=== PATIENT | female | born 1975 | race Caucasian/White ===

== ENCOUNTER → 2018-05-13 09:43 | Outpatient (CLI) | payer OTHER, SELFPAY ==
[2018-05-18 08:17] LABS: HPV HC, High Risk Negative (Negative)
== END ==
PROVIDERS: Visit Provider Obstetrics & Gynecology
DX: Z12.4 Encounter for screening for malignant neoplasm of cervix (principal)
CPT/HCPCS: 87624; 88175; G0145

== ENCOUNTER → 2019-02-22 11:00 | Outpatient (CLI) | payer OTHER, SELFPAY ==
--- NOTE | 2019-02-22 11:30 | EMB_PTH ---
PATIENT: JANETH MCCRAY LOC: [facility] U#:[id number] AGE/SX: 50/F ROOM: RE02/22/[address]: Dr. Bridger Hopson MD : 1975 BED: DIS: SPEC #: [id number] RECD: 02/23/19 10:46 STATUS: ADELINE CRICKET #: [id number] GURMEET: 02/22/19 11:[address]: Bridger Hopson DEPT: SURGICAL PATHOLOGY RECD BY: Mathew Wilhelm Tissues: Endometrium, NOS Procedures: Surgery Specimen Level IV HEADER OPERATION: Endometrial biopsy PRE-OP DIAGNOSIS: N92.6, N93.9 TISSUE SUBMITTED: Endometrial biopsy MICROSCOPIC DIAGNOSIS Endometrial biopsy: Proliferative endometrium. DIANELYS:vikki 02/24/19 MICROSCOPIC DESCRIPTION Slides are reviewed. GROSS DESCRIPTION Received in fixative is one container labeled with the patient's name and designated EM biopsy. The specimen consists of multiple irregular fragments of light clayton soft tissue that in aggregate measure 3 x 2.5 x 0.2 cm. The entire specimen is submitted in one cassette. / SJ:rg 02/23/19 TC:4 CPT: 93694
== END ==
PROVIDERS: Referring Provider Obstetrics & Gynecology; Visit Provider Obstetrics & Gynecology
DX: N93.9 Abnormal uterine and vaginal bleeding, unspecified (principal); N92.6 Irregular menstruation, unspecified
CPT/HCPCS: 88305

== ENCOUNTER 2019-08-08 05:50 | Day surgery (SDC) | payer OTHER, MEDICAID, SELFPAY ==
[2019-08-03 12:55] LABS: Hemoglobin 13.3 g/dL (12.0-15.0); Mean Corp Hgb Conc 32.4 g/dL (32-36); Mean Corpuscular Hgb 28.5 pg (27.0-32.0); Mean Corpuscular Volume 87.8 fL (81-99); Mean Platelet Vol. 9.7 fl (6.2-12.0); Platelet Count 224 K/mm3 (150-450); RBC Distribution Width CV 13.1 % (11.6-14.6); RBC Distribution Width SD 41.7 fl (35.1-43.9); Red Blood Count 4.67 M/mm3 (4.2-5.4); White Blood Count 7.5 K/mm3 (4.4-11.0)
[2019-08-03 13:04] LABS: Prothrombin Time (Protime)PT. 12.2 SECONDS (11.7-14.9)
[2019-08-03 13:05] LABS: Partial Thromboplast Time 27.8 Seconds (24.1-36.2)
[2019-08-03 13:22] LABS: hCG Titer Quant., Serum < 1 mIU/mL (1-3)
[2019-08-03 13:30] LABS: Creatinine, Serum 0.59 mg/dL (0.55-1.02); EST Glomerular Filtration Rate 118 mL/min (>60); Est Glom Filt Rate - Afr Amer 143 mL/min (>60); Thyroid Stim Hormone (TSH) 0.98 uIU/mL (0.358-3.74)
--- NOTE | 2019-08-07 21:38 | HP.PCM_ITS ---
History and Physical Date of Admission: 08/08/19 Surgical History and Physical Pushpa Montez, a 44 year old female 3 0 0 0 3, presents for RAVH/BS on August 08, 2019 at 7:30. -- Heavy Menses S/P EM Ablation -- She has bleed every day for the past 27 days. Mildly enlarged uterus with questionable fibroid changes. Hx Ablation in 2012. At first her periods were 1-2 days and browinsh. This past year they have been lasting 7-8 days, heavier, with clots one day and bright red. Started gradually and has been present worsened in . Severity is moderate and very concerned; Associated signs and symptoms are periods always irregular now getting much heavier sometimes lasting 30 days; cannot take much longer. Previous [employer] in about 2012. MEDICATIONS HISTORY: ALLERGIES: NKDA, Pineapple, Swelling-throat, Kiwi and Swelling-throat Infections - Chicken pox and HPV Illnesses - none Accidents - None Hospitalizations - see surgery and Childbirth Review of Systems: GENERAL - Denies fever, or chills SKIN - Denies skin changes EYES - Denies visual changes EARS - Denies difficulty hearing NOSE - Denies nasal congestion or bleeding MOUTH - Denies sore throat or difficulty swallowing NECK - Denies pain or swelling RESPIRATORY - Denies shortness of breath or wheezing CARDIOVASCULAR - Denies palpitations or chest pain GASTROINTESTINAL - Denies nausea, vomiting, diarrhea, constipation GENITOURINARY - Denies dysuria, frequency of urination, incontinence of urine MUSCULOSKELETAL - Denies joint or muscle pain NEUROLOGICAL - Denies localized numbness or weakness PSYCHIATRIC - Denies depression or anxiety ENDOCRINE - Denies heat or cold intolerance, weight loss or gain HEMATO-IMMUNOLOGIC - Denies excesive bleeding with cuts SOCIAL HISTORY: Alcohol Use - None Smoking - Never Diet - no special diet Lifestyle - moderate stress lifestyle and Exercise - minimal Seat Belt Use - always Employer - [employer] Job Description - project coach/teacher Illicit Drug Use - None Sexual Activity - and sexually inactive Residence - living w/children. from 10-21-14 Children Name(s) - abby yates alyssa Control - none FAMILY HISTORY: Mother: Thyroid Problem, Hypertension and Stroke. Father: Thyroid Problem and DM II. Paternal Grandfather: Heart Disease. MENSTRUAL HISTORY: LMP Known?- YesAmount/Duration - 7-8 days, Regularity - Irregular, Frequency - 28 days, LMP - 06/23/19, Age Onset Menarche - 14 PAST PREGNANCIES: Total Pregnancies - 3; Full Term Pregnancies - 3; Premature - 0; Abortions, Induced - 0; Abortions, Spontaneous - 0; Ectopics - 0; Multiple Births - 0; Living Children - 3 SURGICAL HISTORY: 1. 1979 lump removed from throat 2. 09/08/2012 Hysteroscopy, D and C, endometrial polypectomy, [facility] ; Dr Apolinar Tang - PHYSICAL EXAM BP- 142/84 Sitting, Right arm, regular cuff Weight- 218.61561 lbs Height- 66.5 inch BMI:34.73 CONSTITUTIONAL - NAD, well nourished, and well developed SKIN - No rash, lesions, or ulcers HEENT - Normocephalic, PERRLA, EOMI NECK - No nodes, no nuchal rigidity and thyroid normal size and texture LYMPH NODES - Palpation of lymph nodes in neck and groins within normal limits LUNGS - CTA x2 without wheezes, crackles or rales CARDIAC - Regular rate and rhythm without rubs, murmurs, or gallops BREAST - No dominant masses, no tenderness, no axillary adenopathy, no nipple discharge, no skin changes ABDOMEN - Without hepatosplenomegaly, distention, masses, rebound, or guarding; normal bowel sounds; no hernias EXTREMITIES - No edema or calf tenderness NEUROLOGICAL - Cranial nerves II-XII grossly intact PSYCHIATRIC - A and O to time, place, person, mood and affect External Genital Vagina - non-tender without lesions Urethra/Urethral Meatus - non-tender Bladder - non-tender Vagina - vaginal timmons are pink and moist without loss of rugae and no evidence of atropy Cervix - without cervical motion tenderness and has normal size and features without evident lesions and cervix high in vagina which would make LAVH difficult but RAVH feasible; large cervix Uterus - multiparous size 6 cm & wt 75-125 g Adnexa - clear without massess or tenderness ASSESSMENT/PLAN: 1. Metrorrhagia Recurrent s/p EM Ablation. EMBx results ok. Discussed medical and surgical options for treatment including expectant management, intermittent progesterone or OCP or proceeding with RAVH/BS. Pt desires the surgery. Discussed RBAs and all questions answered.
[2019-08-08] VITALS (13 sets, daily range): BP systolic 108–134; BP diastolic 64–87; PULSE 16–90; RESP 15–18; TEMP 36.3–37.3; O2SAT 92–100; BMI 35.2
[2019-08-08 06:32] LABS: Internal QC Validated? YES +Cl - CLEAR BKGD; Pregnancy, Urine Negative Negative
[2019-08-08] MEDS: Lactated Ringers 1,000 ML 100 ML IV ×3 (06:34→12:06)
--- NOTE | 2019-08-08 07:30 | HYST_PTH ---
PATIENT: JANETH MCCRAY LOC: [facility] U#:[id number] AGE/SX: 44/F ROOM: RE08/08/[address]: Dr. Bridger Hopson MD : 1975 BED: DIS: 08/09/2019 SPEC #: [id number] RECD: 08/08/19 14:00 STATUS: ADELINE CRICKET #: [id number] GURMEET: 08/08/19 07:[address]: Bridger Hopson DEPT: SURGICAL PATHOLOGY RECD BY: Mathew Wilhelm ENTERED: 08/09/19 09:19 SP TYPE: HYSTERECT OTHR DR: SAL Hubbard Tissues: Uterus, NOS Procedures: Surgery Specimen Level V HEADER OPERATION: Lap robotic hysterectomy, bilateral salpingectomy PRE-OP DIAGNOSIS: Metrorrhagia TISSUE SUBMITTED: Uterus, cervix, bilateral fallopian tubes MICROSCOPIC DIAGNOSIS Uterus, cervical and bilateral fallopian tubes, hysterectomy and bilateral salpingectomy: Cervix - moderate chronic inflammation. Endometrium - extensive hyalinization of fibrosis, consistent with endometrial ablation effects. Myometrium - intramural leiomyomas (largest measuring 1 cm in diameter). Bilateral fallopian tubes - no pathologic diagnosis. Right paratubal cyst. SJ:rg 08/10/19 COMMENT Please make reference to previous specimen ([id number]) endometrial biopsy with diagnosis of proliferative endometrium. MICROSCOPIC DESCRIPTION Slides are reviewed. GROSS DESCRIPTION Received in fixative is one container labeled with the patient's name and designated uterus, cervix, bilateral fallopian tubes. The specimen consists of a hysterectomy specimen consisting of uterus with cervix and attached bilateral fallopian tubes. The uterus with cervix weighs 110 gm and measures 10 x 5.5 x 4.5 cm. The serosal surface is clayton, glistening. The ectocervical mucosa is unremarkable. The external os is covered with clayton, hemorrhagic mucoid material. The endocervical canal measures 3 cm in length and the endocervical mucosa is clayton, glistening and unremarkable. The triangular endometrial cavity measures 5 cm in length and up to 1.5 cm in width. The endometrium is clayton, glistening without mass lesion and measures up to 0.1 cm in thickness. Sectioning of the uterine wall reveal multiple nodular masses, largest mass measuring 1 cm in diameter. Sections of these masses reveal clayton whorled cut surfaces without areas of hemorrhage, necrosis or cystic degeneration. The involved uterine wall measures up to 2.5 cm in thickness. The right fallopian tube measures 6 cm in length and 0.5 cm in diameter. The fimbrial end is identified. A paratubal cyst is noted measuring 0.5 cm in diameter. Sections reveal unremarkable cut surfaces. The left fallopian tube is similar appearance to right and measures 7 cm in length and 0.5 cm in diameter. The fimbrial end is identified. Sections reveal unremarkable cut surfaces. Regulatory Product Manager sections are submitted in nine cassettes as follows: 1??anterior cervix, 2 - posterior cervix, 3 & 4 - anterior uterine wall, 5 & 6 - posterior uterine wall, 7??nodular masses, 8 - right fallopian tube and paratubal cyst, 9 - left fallopian tube. / DIANELYS:vikki 08/09/19 TC:1 CPT: 18846
[2019-08-08] MEDS: Ropivacaine 0.5% 30 ML Vial (08:01)
--- NOTE | 2019-08-08 10:00 | PCM.OPRPT ---
Report of Operation Date of Procedure: 08/08/19 Pre-Operative Diagnosis: Menorrhagia Status Post Endometrial Ablation Post-Operative Diagnosis: Menorrhagia Status Post Endometrial Ablation Surgery/Procedure Performed:: Robotic Assisted Vaginal Hysterectomy and Bilateral Salpingectomy Description of Surgical Findings:: 10 cm uterus with normal-appearing fallopian tubes and ovaries. operations director: Catalino Hayse Type of Anesthesia:: General - Endotracheal Anesthesiologist: Vinh Mohan Specimen's removed: Uterus and bilateral fallopian tubes Drains: Borrego to straight drain Estimated Blood Loss (mL): Minimal Fluids Replaced: Crystalloid Description of Procedure: Surgeon: Bridger Hopson MD, FACOG Indication: This is a 44 year old patient who has been having problems with heavy periods after having an ablation done. Conservative measures have not been helpful. The patient has been counseled regarding the risks, benefits and alternatives of this procedure including the possibility of bleeding, infection, and injury to surrounding structures such as bowel bladder and all questions were answered. She understands that if BSO is needed that she will need to be on HRT for an indefinite period of time. Procedure: Pt taken to the operating room where, after induction of general anesthesia, the patient was prepped and draped in the usual sterile fashion and placed on a non-slip Huggy-u-vac device. Trendelenburg test was satisfactory. Bladder was drained of urine with a latex free Borrego catheter which was left in place. Anterior cervix grasped and cervix was dilated to about 3-4 mm. Uterus sounded to 9 cms. 0-Vicryl suture was placed at the 3:00 and 9:00 position of the cervix. A medium Advincula Airplane Electrical Repairer Uterine Manipulator was then placed in the uterus and attention was turned to the laparoscopic portion of the procedure. Ropivocaine 0.5% was injected approximately 2-3 cm superior to the umbilicus and an 8 mm robotic camera port was introduced directly with intraperitoneal placement confirmed with CO2 insufflation. 8 mm robotic side ports were introduced under direct visualization approximately 11 cm lateral and 2 cm inferior to the umbilical port. A 5 mm left upper quadrant port was introduced and airseal insufflation with CO2 was started. The above findings were noted. Robot was docked without difficulty and attention turned to the robotic portion of the procedure. Approximately 27 cc of Ropivicaine was used. Bilateral infundibulopelvic ligaments/mesosalpinx were ligated with 35 simpson bipolar coagulation to the level of the round ligament. The posterior aspect of the cervix was identified and then opened for about 1 cm using 25 watt monopolar cautery identifying the uterine manipulating device which had been placed vaginally. Bladder flap was opened and divided to the level of the round ligaments using monopolar cautery. Progressive bites were then ligated on each side of the cervix with 35 simpson bipolar cautery to the uterine arteries. The anterior vaginal mucosa was entered and cervix circumscribed with monopolar cautery. Uterus and attached tubes were removed through the vagina. Vaginal cuff was closed first with 0-Vicryl Tracy stitches placed at each angle followed by closure of the mid-cuff with 0-Monocryl V-lock suture in two layers. Pelvis was copiously irrigated with saline and the right and left ureter were noted to peristalse. Robot was undocked and trocars were removed with as much gas as possible. Incisions were closed with 4-0 Monocryl subcuticular sutures and incisions covered with steri-strips. The patient tolerated the procedure well and was taken to the recovery room in satisfactory condition. Sponge, instruments and needle counts were all correct. There were no apparent complications of the surgery. Cefotan 2 gms IV was given prior to the procedure. Estimated Blood Loss: Minimal Specimen to Pathology: Uterus and bilateral fallopian tubes Grafts/Implants Used: None - Complications None - Admit VTE Documentation VTE Present on Admission: Yes VTE Mechan Device Prophylaxis: SCD's VTE Pharm Prophylaxis ordered?: Yes
--- NOTE | 2019-08-08 10:05 | PCM.DC.VHY ---
Discharge Diet: No Restrictions Discharge Activity: Return to Normal Activity, May Not Drive - while taking narcotic pain medications., May Shower, May Take a Tub Bath May resume sexual activity in: 6-8 weeks Call your doctor if your incision/area has: Continuous Slow Oozing, Sudden Increased Bleeding, Increased Pain/ Swelling, Increased Redness, Foul Smelling Discharge Call your doctor if you observe: Fever of 101 or Higher, Inability to urinate, Inability to have a bowel movement, Using more than one pad per hour Allergies/Adverse Reactions: Allergies kiwi Allergy (Verified 08/08/19 06:09) Angioedema pineapple Allergy (Verified 08/08/19 06:09) Angioedema Medications to take at Discharge Ibuprofen [Advil] 200 mg PO PRN PRN 08/01/19 Loratadine [Claritin] 10 mg PO PRN PRN 08/01/19 Docusate Sodium [Colace] 100 mg PO BID PRN PRN #60 cap 08/08/19 Oxycodone [Oxyir] 5 mg PO Q6H PRN PRN 7 Days #20 tablet 08/08/19 The following prescriptions were given: Docusate Sodium [Colace] 100 mg PO BID PRN PRN #60 cap PRN Reason: Constipation Transmission Status: [facility] Oxycodone [Oxyir] 5 mg PO Q6H PRN PRN 7 Days #20 tablet PRN Reason: Pain Score 6-10/10 Transmission Status: Sent to [facility] Primary Care Physician: Donna Robles PA [Primary Care Provider] - Test Results: Test results from this visit will be discussed in further detail at your follow-up appointment, if applicable. Please Follow Up With: Bridger Hopson MD When: 2-3 weeks
[2019-08-08] MEDS: Ketorolac 30 MG/ML Syringe IV ×2 (13:57→19:53)
[2019-08-08] MEDS: Enoxaparin 30 MG/0.3 ML Syringe SC (18:02)
[2019-08-08] MEDS: oxyCODONE 5 MG Tablet PO ×2 (18:06→23:38)
[2019-08-08] MEDS: Acetaminophen 500 MG Tablet 1000 MG PO (21:02)
[2019-08-09] MEDS: 0.9% Saline Lock 10 ML Syringe IV ×2 (02:20→08:40)
[2019-08-09] MEDS: Ketorolac 30 MG/ML Syringe IV ×2 (02:20→08:39)
[2019-08-09 03:23] VITALS: BP 99/56; PULSE 64; RESP 16; TEMP 36.9; O2SAT 94
[2019-08-09] MEDS: oxyCODONE 5 MG Tablet PO (03:41)
[2019-08-09 07:02] VITALS: O2SAT 94
[2019-08-09 08:14] LABS: Hematocrit 35.8 % (37-47); Hemoglobin 11.6 g/dL (12.0-15.0); Mean Corp Hgb Conc 32.4 g/dL (32-36); Mean Corpuscular Hgb 28.9 pg (27.0-32.0); Mean Corpuscular Volume 89.1 fL (81-99); Mean Platelet Vol. 9.5 fl (6.2-12.0); Platelet Count 181 K/mm3 (150-450); RBC Distribution Width CV 12.9 % (11.6-14.6); RBC Distribution Width SD 41.7 fl (35.1-43.9); Red Blood Count 4.02 M/mm3 (4.2-5.4); White Blood Count 7.7 K/mm3 (4.4-11.0)
[2019-08-09 08:37] VITALS: BP 127/71; PULSE 72; RESP 18; TEMP 36.9; O2SAT 98
[2019-08-09 08:39] LABS: Creatinine, Serum 0.65 mg/dL (0.55-1.02); EST Glomerular Filtration Rate 105 mL/min (>60); Est Glom Filt Rate - Afr Amer 127 mL/min (>60); Estimated Creatinine Clearance 104.47 ml/min
--- NOTE | 2019-08-09 08:41 | PN.OBGYN_ITS ---
Subjective: Patient without complaints. Tolerating diet well. Positive flatus. Borrego catheter out but still unable to void. Pain well controlled. Denies any vaginal bleeding. Objective: Wounds are clean, dry, intact. Good urine output. Hemoglobin okay. - Physical Exam Vitals/I&O's: Vital Signs Temp Pulse Resp BP Pulse Ox 98.5 F 72 18 127/71 H 98 08/09/19 08:37 08/09/19 08:37 08/09/19 08:37 08/09/19 08:37 08/09/19 08:37 Oxygen Flow Rate (L/min) 2 Oxygen Delivery Method Room Air Weight: 218 lb Body Mass Index (BMI) 35.2 Intake and Output for Last 24 Hours 08/07/19 08/08/19 08/09/19 23:59 23:59 23:59 Intake Total 4201.67 / 4201.67 250 / 250 Output Total 1675 / 1675 1300 / 1300 Balance 2526.67 / 2526.67 -1050 / -1050 Laboratory Results 08/09/19 07:02: WBC 7.7, RBC 4.02 L, Hgb 11.6 L, Hct 35.8 L, MCV 89.1, MCH 28.9, MCHC 32.4, RDW Std Deviation 41.7, RDW Coeff of Peña 12.9, Plt Count 181, MPV 9.5 08/09/19 07:02: Creatinine 0.65, Estim Creat Clear Calc 104.47, Est GFR (MDRD) Af Amer 127, Est GFR (MDRD) Non-Af 105 Current Medications Acetaminophen (Tylenol) 1,000 mg PO Q8H PRN PRN PRN Reason: Pain Score 1-3/10 or Fever Last Admin: 08/08/19 21:02 Dose: 1,000 mg Documented by: Docusate Sodium (Colace) 100 mg PO BID PRN PRN PRN Reason: CONSTIPATION Hydromorphone HCl (Dilaudid Inj) 0.5 mg IV Q3H PRN PRN PRN Reason: Pain Score 4-10/10 Ketorolac Tromethamine (Toradol (Bkc)) 30 mg IV Q6H ZAIDA Stop: 08/13/19 14:01 Last Admin: 08/09/19 08:39 Dose: 30 mg Documented by: Loratadine (Claritin) 10 mg PO DAILY PRN PRN PRN Reason: ALLERGIES Ondansetron HCl (Zofran) 4 mg IV Q4H PRN PRN PRN Reason: NAUSEA Oxycodone HCl (Oxyir) 5 mg PO Q4H PRN PRN PRN Reason: Pain Score 4-10/10 Last Admin: 08/09/19 03:41 Dose: 5 mg Documented by: Simethicone (Mylicon) 80 mg PO [facility] Last Admin: 08/09/19 08:39 Dose: 80 mg Documented by: Sodium Chloride () 10 - 40 ml IV UD PRN PRN Reason: SALINE FLUSH Last Admin: 08/09/19 08:40 Dose: 10 ml Documented by: Medical Necessity - Tobacco Use Smoking Status: Never smoker Tobacco Use: Non-smoker Assessment/Plan Doing well postoperative day #1 status post robotic assisted vaginal hysterectomy and bilateral salpingectomy. Will release to home with routine instructions after able to void on own.
== END 2019-08-09 10:21 | disposition home or self-care (01) ==
LOC: SDC 05:54 → AC 05:54 → MS3 08:17
PROVIDERS: Anesthesiology; PCP Physician Assistant; Referring Provider Obstetrics & Gynecology; Visit Provider Obstetrics & Gynecology
PROC: 0UT90ZZ Resection of Uterus, Open Approach (ICD-10-PCS; principal; 2019-08-08 07:10)
DX: D25.1 Intramural leiomyoma of uterus (principal); N72 Inflammatory disease of cervix uteri; N83.8 Other noninflammatory disorders of ovary, fallopian tube and broad ligament; Z79.1 Long term (current) use of non-steroidal anti-inflammatories (NSAID); Z82.49 Family history of ischemic heart disease and other diseases of the circulatory system; Z11.59 Encounter for screening for other viral diseases
CPT/HCPCS: 00944; 58552; 36415; 81025; 82565; 84443; 84702; 85027; 85610; 85730; 86850; 86900; 86901; 87635; 88307; 99251; G2023; J7120; A4216; G0463; J0330; J2405; U0002

== ENCOUNTER 2021-04-04 09:13 | Emergency (ER) | payer OTHER, MEDICAID, SELFPAY ==
[2021-04-04 09:14] VITALS: BP 142/86; PULSE 87; RESP 14; TEMP 36.4; O2SAT 98; BMI 34.4
--- NOTE | 2021-04-04 09:46 | RAD_ITS ---
STUDY: X-RAY CHEST REASON FOR EXAM: Female, 46 years old. Chest pain TECHNIQUE: Single AP portable view of the chest. COMPARISON: None. FINDINGS: EKG electrodes are seen. The lungs are clear and expanded. There is no demonstrated pleural abnormality. Normal size heart. Normal mediastinum and david. Normal visualized pulmonary arteries. Normal visualized aortic arch and descending thoracic aorta. Normal visualized thoracic spine. Normal visualized ribs, clavicles, and shoulders. There is no demonstrated abnormality of the visualized soft tissue structures of the upper abdomen. RAD/Chest 1 View (Portable) IMPRESSION: Normal x-ray examination of the chest. Electronically Signed: Ced Ahn MD at 11:16 EST , Service support ,
--- NOTE | 2021-04-04 09:46 | EKG12_ITS ---
Test Reason : CP Blood Pressure : / mmHG Vent. Rate : 073 BPM Atrial Rate : 073 BPM P-R Int : 142 ms QRS Dur : 078 ms QT Int : 384 ms P-R-T Axes : 049 031 011 degrees QTc Int : 423 ms Normal sinus rhythm Normal ECG Confirmed by ROGERS AMAYA, TIGIST ([id number]), medical editor RAMÓN REYES ([id number]) on 04/08/2021 11:25:48 AM Referred By: DICKSON Confirmed By:TIGIST MCCLOUD MD
--- NOTE | 2021-04-04 10:02 | ED.VIS.CHEST ---
HPI History of Present Illness Chief Complaint: Chest Pain Informant: patient Onset/Context/Timing Onset: Yesterday Activity at onset: sudden Timing: Continuous Quality: Positive for Pressure and Tightness Location: Left Parasternal and Left Chest Worsened By: Nothing Relieved By: - (Sitting up) Associated Symptoms: Positive for Nausea, Dyspnea, Cough and Acid Reflux; Negative for Vomiting, Diaphoresis, Fever, Lightheadedness and Palpitations Narrative Narrative: Patient presents with chest pain that began last night. Patient states it is over the left upper chest area. Patient states it radiates into her shoulder. Patient describes it as tightness and pressure. Patient states nothing makes it worse. Patient states he gets better when she sits up. Patient admits to nausea but denies any vomiting. Patient admits to some shortness of breath and cough. Patient also admits to some acid reflux symptoms. Patient states she went to the urgent care today and was diagnosed with COVID-19. Patient denies any cardiac risk factors. Patient denies any PE risk factors. CVD Risk Factors: Negative for Hypertension, Diabetes, Hypercholesterolemia, Family History 1' </=55 and Smoking PE Risk Factors: Negative for Recent Travel/Surgery, Recent Immobilization, Prior DVT or PE and Cancer [facility] Medical History (Updated 04/04/21 @ 13:[address] Curtis Centeno, DO) Chest pain COVID-19 Left shoulder pain Shortness of breath Home Medications ibuprofen 200 mg PO PRN PRN 08/01/19 [History Last Taken Unknown] loratadine 10 mg PO PRN PRN 08/01/19 [History Last Taken Unknown] docusate sodium 100 mg PO BID PRN PRN #60 cap 08/08/19 [Rx Last Taken Unknown] dexamethasone 4 mg tablet 4 mg PO DAILY #5 tab 04/04/21 [Rx Last Taken Unknown] Allergy/AdvReac Type Severity Reaction Status Date / Time kiwi Allergy Angioedema Verified 04/04/21 09:17 pineapple Allergy Angioedema Verified 04/04/21 09:17 Surgical History History of hysterectomy Social History Smoking Status: Never smoker alcohol intake: current alcohol intake frequency: a few times a month ROS ROS ED Constitutional Constitutional ED: Denies chills or fever(s) Eyes Eyes: Denies blurry vision or change in vision ENT ENT ED: Reports rhinorrhea and sore throat Cardiovascular Cardiovascular: Reports chest pain; Denies palpitations Respiratory/Chest Respiratory/Chest: Reports cough and dyspnea Gastrointestinal Gastrointestinal: Reports nausea; Denies abdominal pain or vomiting Genitourinary Genitourinary ED: Denies dysuria or hematuria Musculoskeletal Musculoskeletal: Reports back pain; Denies neck pain Integumentary Denies abscess or rash Neurologic Neurologic: Denies headache(s) or weakness Allergic/Immunologic Allergic/Immunologic ED: Denies mouth swelling or urticaria EXAM Physical Exam Const Vital Signs: 04/04/21 09:14 04/04/21 09:46 04/04/21 11:03 Temperature 97.6 F L Temperature Source Temporal Pulse Rate 87 82 Respiratory Rate 14 18 Blood Pressure 142/86 H 141/96 H Blood Pressure Mean 104 111 Pulse Ox 98 99 Oxygen Delivery Method Room Air Room Air Room Air 04/04/21 12:35 Temperature Temperature Source Pulse Rate 79 Respiratory Rate 19 H Blood Pressure 135/77 H Blood Pressure Mean 96 Pulse Ox 96 Oxygen Delivery Method Room Air Positive well nourished, well developed and obese General Appearance ED: well developed Nutritional Appearance: obese HEENT normocephalic and atraumatic Eyes PERRL and EOMs intact bilaterally Neck supple and no JVD Resp normal respiratory effort and clear to auscultation bilaterally Effort and Inspection: Negative for respiratory distress Cardio regular rate, regular rhythm and no murmurs GI normal to inspection, nondistended, normoactive bowel sounds, soft to palpation, non-tender and non-distended Extremity normal to inspection General Extremety ED: Negative for edema or tenderness General Extremity: Negative for edema Neuro oriented x3, CN's II-XII intact bilaterally and no sensory deficits noted Sensorium / Orientation: awake and alert Motor Exam: strength 5/5 throughout Psych mental status grossly normal Heart Score History: Slightly/Non-Suspicious Age: </= 45 years Risk Factors: No Risk Factors Troponin: </= Normal Limit Score: 0 MDM MDM MDM Narrative Medical decision making narrative: EKG was obtained. On my interpretation, it showed a normal sinus rhythm with a rate of 73. NC interval, QRS interval, and QTc intervals were all normal. [place] was normal. There are no acute ST or T wave changes. CBC and basic metabolic profile were within normal limits. D-dimer was normal. Initial high-sensitivity troponin was normal at 25. 2-hour repeat high-sensitivity troponin was also 25. Portable 1 view chest x-ray was obtained. On my interpretation, lung carreno are clear. There is normal cardiac silhouette. Bony thorax is normal. There is no acute process noted. Radiologist also interpreted the x-ray and agrees. Patient is feeling better on reevaluation. Patient states that the physician at the urgent care was going to make a referral for monoclonal antibody infusion. I will not duplicate this. Patient was instructed to follow-up with her antibody infusion. Patient was instructed to take Tylenol or ibuprofen as needed for any pain or fevers. Patient was instructed to return if worse in any way. Patient understood and was agreeable with the plan. All questions were answered. Lab Data Attestation: I reviewed the patient's lab results. Labs: Laboratory Results - last 24 hr 04/04/21 04/04/21 04/04/21 09:45 09:45 09:45 WBC 8.8 RBC 4.92 Hgb 14.1 Hct 43.2 MCV 87.8 MCH 28.7 MCHC 32.6 RDW Std Deviation 42.6 RDW Coeff of Peña 13.2 Plt Count 211 MPV 9.0 Immature Gran % (Auto) 0.700 Neut % (Auto) 67.9 Lymph % (Auto) 18.5 L [place] % (Auto) 8.1 Eos % (Auto) 3.9 Baso % (Auto) 0.9 Absolute Neuts (auto) 6.0 Absolute Lymphs (auto) 1.63 Nucleated RBC % 0 D-Dimer Quant (PE/DVT) 0.28 Sodium 140 Potassium 4.0 Chloride 107 Carbon Dioxide 27.0 Anion Gap 6 BUN 12 Creatinine 0.66 Estim Creat Clear Calc 100.77 Est GFR (MDRD) Af Amer 124 Est GFR (MDRD) Non-Af 102 BUN/Creatinine Ratio 18.1 Glucose 86 Calcium 9.1 Troponin I High Sens 25 04/04/21 11:50 WBC RBC Hgb Hct MCV MCH MCHC RDW Std Deviation RDW Coeff of Peña Plt Count MPV Immature Gran % (Auto) Neut % (Auto) Lymph % (Auto) [place] % (Auto) Eos % (Auto) Baso % (Auto) Absolute Neuts (auto) Absolute Lymphs (auto) Nucleated RBC % D-Dimer Quant (PE/DVT) Sodium Potassium Chloride Carbon Dioxide Anion Gap BUN Creatinine Estim Creat Clear Calc Est GFR (MDRD) Af Amer Est GFR (MDRD) Non-Af BUN/Creatinine Ratio Glucose Calcium Troponin I High Sens 25 Radiography Chest X-Ray - ED: 1 View, Read by ED Physician, Read by Radiologist and Normal Diagnostic Testing: Clinical Impression(s) from Imaging Studies Chest X-Ray 04/04/21 09:46 IMPRESSION: Normal x-ray examination of the chest. Electronically Signed: Ced Ahn MD at 11:16 EST , Service support , EKG Initial EKG: Attestation: I personally reviewed and interpreted this EKG as follows: Interpretation: Sinus Rhythm (73) and No Acute Injury Pattern Prior EKG tracings: not available for review Discharge Plan Triage Chief Complaint: Chest Pain ED Provider: Curtis Centeno Dx/Rx/DC Orders Clinical Impression: COVID-19, Chest pain Instructions: Coronavirus Disease 2019 (COVID-19): Overview, ED Chest Pain, Uncertain Cause Prescriptions: No Action dexamethasone [Decadron] 4 mg tablet 4 mg PO DAILY Qty: 5 RF: 0 loratadine 10 MG tablet,disintegrating 10 mg PO PRN PRN (Reason: Allergies) RF: 0 ibuprofen 200 MG tablet 200 mg PO PRN PRN (Reason: Pain Or Fever) RF: 0 docusate sodium 100 MG capsule 100 mg PO BID PRN PRN (Reason: Constipation) Qty: 60 RF: 1 Primary Care Provider: Donna Robles Referrals: Donna Robles PA [Primary Care Provider] - 3-5 Days Disposition Disposition: Home, Self Care Discharge Date/Time: 04/04/21 13:32
[2021-04-04 10:05] LABS: Absolute Lymphocyte Count 1.63 X10^3/uL (0.83-4.51); Basophil# 0.08 X10^3/uL; Basophil% 0.9 % (0-1); Eosinophil# 0.34 X10^3/uL; Eosinophils% 3.9 % (0-5); Hematocrit 43.2 % (37-47); Hemoglobin 14.1 g/dL (12.0-15.0); Lymphocyte # 1.63 X10^3/ul (0.83-4.51); Lymphocyte % 18.5 % (19-41); Mean Corp Hgb Conc 32.6 g/dL (32-36); Mean Corpuscular Hgb 28.7 pg (27.0-32.0); Mean Corpuscular Volume 87.8 fL (81-99); Monocyte# 0.71 X10^3/uL; Monocyte% 8.1 % (0-10); NRBC Flagged by Analyzer 0 % (0-5); Neutrophil # 5.98 X10^3/uL (2.7-7.7); Neutrophil % 67.9 % (47-70); Platelet Count 211 K/mm3 (150-450); RBC Distribution Width CV 13.2 % (11.6-14.6); RBC Distribution Width SD 42.6 fl (35.1-43.9); Red Blood Count 4.92 M/mm3 (4.2-5.4); White Blood Count 8.8 K/mm3 (4.4-11.0)
[2021-04-04 10:06] LABS: D-Dimer Quantitative (DVT/PE) 0.28 FEU/ug/m (0.27-0.49)
[2021-04-04 10:19] LABS: Anion Gap 6 (5-15); BUN 12 mg/dL (7-18); BUN/Creat Ratio 18.1 RATIO (10-20); Calcium,Total 9.1 mg/dL (8.5-10.1); Chloride 107 mmol/L (98-107); Creatinine, Serum 0.66 mg/dL (0.55-1.02); EST Glomerular Filtration Rate 102 mL/min (>60); Est Glom Filt Rate - Afr Amer 124 mL/min (>60); Estimated Creatinine Clearance 100.77 ml/min; Glucose 86 mg/dL (74-106); Sodium Level 140 mmol/L (136-145); Troponin-I HS 25 pg/mL (3.0-54.0)
[2021-04-04] MEDS: Aspirin 81 MG TAB.CHEW 324 MG PO (10:50)
--- NOTE | 2021-04-04 10:52 | ED.RN ---
AFTER TAKING BABY ASA, PT C/O FEELING NAUSEATED AGAIN. DR FORMAN NOTIFIED
[2021-04-04 11:03] VITALS: BP 141/96; PULSE 82; RESP 18; O2SAT 99
[2021-04-04 12:15] LABS: Troponin-I HS 25 pg/mL (3.0-54.0)
[2021-04-04 12:35] VITALS: BP 135/77; PULSE 79; RESP 19; O2SAT 96
== END 2021-04-04 13:32 | disposition home or self-care (01) ==
PROVIDERS: Emergency Provider Emergency Medicine; PCP Physician Assistant; Visit Provider Emergency Medicine
DX: U07.1 COVID-19 (principal); R07.9 Chest pain, unspecified; E66.9 Obesity, unspecified
CPT/HCPCS: 71045; 80048; 84484; 85025; 85379; 93005; 99285; A4216

== ENCOUNTER → 2023-11-25 | Outpatient (CLI) | payer OTHER, SELFPAY ==
--- NOTE | 2023-11-25 13:51 | NEURO ---
NCS and/or EMG Patient Report Ordering Doctor: Donna Robles DATE OF SERVICE: 11/25/23 [place] presents with complaints of intermittent numbness and a heavy feeling in both legs. This is primarily from the mid calf to the feet. Electrodiagnostic findings: Peroneal motor nerve demonstrates normal distal latency, amplitude and conduction velocity bilaterally. Tibial motor response is within normal limits. Sensory responses are normal. H?reflex is normal bilaterally. Needle EMG testing was performed of the lower limbs. All muscles tested showed no evidence of denervation with normal motor unit action potentials. Electrodiagnostic impression: This a normal electrodiagnostic study of the lower limbs. There is no electrodiagnostic evidence for peripheral neuropathy or lumbosacral radiculopathy. Multi Select Codes Neurology Neurology Interp Codes: 02852-59 Musc test done w/n test comp (interp) (2) and 85890-12 Nrv cndj test 9-10 studies (interp)
== END | disposition home or self-care (01) ==
LOC: PSN 08:19
PROVIDERS: PCP Physician Assistant; Referring Provider Physician Assistant; Visit Provider Physician Assistant
DX: R20.0 Anesthesia of skin (principal); R20.2 Paresthesia of skin
CPT/HCPCS: 95886; 95911